=== PATIENT | female | born 1985 | race Caucasian/White ===

== ENCOUNTER 2017-05-01 07:33 | Inpatient (IN) | payer SELFPAY ==
[2017-05-01] MEDS ORDERED: cefTRIAXone\\ROCEPHIN 1 GM VIAL ONE (08:57)
[2017-05-01] MEDS ORDERED: metroNIDAZOLE 500 MG/100 ML BAG ONE (08:57)
[2017-05-01 09:34] LABS: Hemoglobin A1c 12.6 % (4.0-6.0)
--- NOTE | 2017-05-01 09:34 | HP ---
DATE OF ADMISSION: 05/01/2017 PRIMARY CARE PHYSICIAN: None. CHIEF COMPLAINT: Abdominal discomfort of 2 weeks' duration. HISTORY OF PRESENT ILLNESS: Patient is a 31-year-old female with diabetes mellitus type 2, presente d to [facility] with right upper quadrant abdominal discomfort that has been ongoing for the last 2 weeks. Her pain was initially intermittent; however, lately it has been more or less constant. She also had nausea and vomited twice this week. She also feels bloated. She felt somewhat constipated for which she took laxatives. However, she was getting bowel movement s on a daily basis. The pain was more or less moderate in intensity, worse on movement. She denies any aggravating factor. She denies any fever; however, had intermittent chills. She denies any si ck contacts or travel. She denies eating outside. No other family members with similar illness. Initial vital signs at [place] showed temperature 98, respirations 18, pulse of 90, blood press ure of 144/84 with O2 saturation 97% on room air. Her WBC count was 12.4 with blood glucose of 365. Bicarbonate was 21 with glucosuria and ketones. She had a CT scan of the abdomen and pelvis that was consistent with inflammatory stranding in the right paracolic gutter adjacent to the ascending c olon with mild stranding in the anterior aspect of the pelvis anterior to the right adnexal structur e. There was diffuse fatty infiltration of the liver without any CT evidence of appendicitis. Righ t upper quadrant ultrasound showed sludge with positive sonographic Sutherland's sign. Her lipase was n ormal. PAST MEDICAL HISTORY: Diabetes mellitus type 2 and anxiety. PAST SURGICAL HISTORY: section. ALLERGIES: No known drug allergies. CURRENT HOME MEDICATIONS: Patient does not take any medications due to financial reasons. SOCIAL HISTORY: Patient currently lives at home with her family. No smoking, alcohol or drug use. FAMILY HISTORY: Positive for diabetes mellitus type 2. REVIEW OF SYSTEMS: The following complete review of systems was negative, unless otherwise mentione d in the HPI or below: Constitutional: Weight loss or gain, ability to conduct usual activities. Skin: Rash, itching. Eyes: Double vision, pain. ENT/Mouth: Nose bleeding, neck stiffness, pain, tenderness. Cardiovascular: Palpitations, dyspnea on exertion, orthopnea. Respiratory: Shortness of breath, wheezing, cough, hemoptysis, fever or night sweats. Gastrointestinal: Poor appetite, abdominal pain, heartburn, nausea, vomiting, constipation, or diar noel. Genitourinary: Urgency, frequency, dysuria, nocturia. Musculoskeletal: Pain, swelling. Neurologic/Psychiatric: Anxiety, depression. Allergy/Immunologic: Skin rash, bleeding tendency. PHYSICAL EXAMINATION: VITAL SIGNS: As discussed above. GENERAL: A 31-year-old female in mild distress due to abdominal discomfort. HEENT: Head is atraumatic, normocephalic. Sclerae are anicteric. Dry mucous membranes. No oral l esion. NECK: Supple, no JVD appreciated. No carotid bruit. LUNGS: Clear to auscultation bilaterally. HEART: S1, S2 present, regular rate and rhythm. No murmur, rubs or gallops are appreciated. ABDOMEN: Soft. There is right upper quadrant tenderness with voluntary guarding. No costovertebra l angle tenderness. Bowel sounds were present. EXTREMITIES: No edema or calf tenderness. NEUROLOGIC: Grossly nonfocal, moves all four extremities. PSYCHIATRY: Alert, awake, oriented x3. SKIN: Warm and dry. LYMPH NODES: No palpable lymph nodes in the neck. PERIPHERAL VASCULAR: Radial pulses palpable bilaterally. MUSCULOSKELETAL: No joint swelling or tenderness. LABORATORY DATA AND IMAGIN. As discussed above. LFTs in normal range. Lipase was normal. test was normal. Gluc ose was 365. 2. Chest x-ray by my review was negative for infiltrate or edema. 3. CT scan of the abdomen and right upper quadrant ultrasound as discussed above. IMPRESSION: 1. Sepsis. 2. Suspected colitis. Rule out gallbladder etiology. 3. Diabetes mellitus type 2. 4. Dehydration. 5. Metabolic acidosis, rule out diabetic ketoacidosis/lactic acidosis. 6. Mild hyponatremia, probably secondary to hyperglycemia. 7. Medication noncompliance. PLAN: 1. The patient will be monitored on the medical floor. Gastroenterology will be consulted. We prema l keep her n.p.o. HIDA scan will be done today. We will repeat labs today. Check ketones and lact ic acid. IV ceftriaxone and Flagyl. A.m. labs. DVT prophylaxis with SCDs. Patient was encouraged to ambulate in the hallway. 2. The patient will require at least 2-3 days for stabilization.
[2017-05-01 09:43] LABS: ALT (SGPT) 9 U/L (8-55); AST (SGOT) 11 U/L (5-34); Alkaline Phosphatase 84 U/L (40-150); Anion Gap 15 mmol/L (10-20); BUN (Urea Nitrogen) 6 mg/dL (7.0-18.7); Bilirubin, Total 0.2 mg/dL (0.2-1.2); Calc. Creatinine Clearance 0 mL/min (70-130); Carbon Dioxide 17 mmol/L (22-29); Chloride 104 mmol/L (98-107); Estimated GFR-MDRD Greater than 90; Globulin 3.3 g/dL (2.4-3.5); Magnesium 1.6 mg/dL (1.6-2.6); Phosphorus 2.2 mg/dL (2.3-4.7); Protein, Total 6.5 g/dL (6.0-8.3)
[2017-05-01] MEDS ORDERED: Loratadine 10 MG TAB PO PRN (11:25)
[2017-05-01] MEDS ORDERED: Dextrose 50% Abboject 50 ML SYRINGE SLOW IVP PRN (11:25)
[2017-05-01] MEDS ORDERED: Ondansetron ODT 4 MG TAB PO PRN (11:25)
[2017-05-01] MEDS ORDERED: Dextrose 5% in Water 1,000 ML IV PRN (11:25)
[2017-05-01] MEDS ORDERED: Acetaminophen 325 MG TAB PO PRN (11:25)
[2017-05-01] MEDS ORDERED: NPH, Human Insulin Isophane 300 UNIT/3 ML VIAL SC SCH (11:25)
[2017-05-01] MEDS ORDERED: Ondansetron HCl/PF 4 MG/2 ML Vial IVP PRN (11:25)
[2017-05-01] MEDS ORDERED: Senokot 8.6 MG TAB PO PRN (11:25)
[2017-05-01] MEDS ORDERED: Calcium Carbonate 500 MG ChewTAB PO PRN (11:25)
[2017-05-01] MEDS ORDERED: Eucerin (Mineral Oil/Petrolatum,White) 30 gm Jar TOP PRN (11:25)
[2017-05-01] MEDS ORDERED: cefTRIAXone\\ROCEPHIN 1 GM in Sodium Chloride 0.9% 100 ML IVPB SCH (12:00)
[2017-05-01] MEDS: K-Phos Neutral 250 MG TAB PO SCH ×3 (12:12→20:19)
[2017-05-01] MEDS: Insulin Regular 300 UNITS/3 ML VIAL SC PRN ×2 (12:34→20:46)
--- NOTE | 2017-05-01 12:52 | CON ---
DATE OF CONSULTATION: 05/01/2017 REQUESTING PHYSICIAN: Deandre Edwards M.D. HISTORY OF PRESENT ILLNESS: A 31-year-old morbidly obese woman with history of type 2 diab etes mellitus. The patient presented to the emergency department today complaining of 2-week histor y of epigastric to right upper quadrant abdominal pain. Pain is described as sharp and associated w ith frequent nausea and abdominal bloating. The patient thought she was constipated and has taken s ome laxatives with no relief. The patient reports frequent flatulence. Pain had intensified over l ast 2 days. As a result, the patient presented to emergency department. She denies any radiation w ith respect to the pain. She denies any fevers or chills. PAST MEDICAL HISTORY: Significant for obesity and diabetes mellitus for which she was previously on insulin, but has not been compliant. PAST SURGICAL HISTORY: Pertinent for 7 years ago. SOCIAL HISTORY: The patient is and is a . 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 Otherwise, lives at home with her and a 7-year-old daughter. She denies any c igarette smoking, ethanol or illicit drug abuse. FAMILY HISTORY: Notable for mother who recently from complications of diabetes mellitus and he art disease. Her father from tobacco related lung carcinoma. Her grandmother also had diabete s mellitus. CURRENT MEDICATIONS: None. ALLERGIES: The patient denies any known drug allergies. REVIEW OF SYSTEMS: Ten-point review of system essentially unremarkable except for as stated in the past medical history and chief complaint. PHYSICAL EXAMINATION: GENERAL: This reveals a 31-year-old morbidly obese woman who is otherwise coherent, interactive and appears stated age. The patient is alert and oriented x3, appears to be in no significant acute di stress at the time of my evaluation. VITAL SIGNS: Includes blood pressure 161/84, pulse is 93, respiratory rate is 18, temperature is 97 degrees Fahrenheit, and oxygen saturation is 95% on room air. HEENT: Reveals normocephalic and atraumatic. Pupils are equal, round, and reactive to light and ac commodation. HEART: Reveals regular rate and rhythm, no murmurs or gallops auscultated. LUNGS: Clear to close auscultation bilaterally. Breathing is regular and unlabored. ABDOMEN: Soft and obese. She has right upper quadrant tenderness to palpation. She has a positive Sutherland sign. Liver and spleen are otherwise nonpalpable below costal margins. NEUROLOGIC: Reveals no focal deficits present. PERTINENT LABORATORY FINDINGS: Today includes CBC from [place] with 12,400 white blood cells, hemoglobin 12.8, hematocrit is 37.4, platelet count is 501,000. Metabolic profile includes sodium 132, potassium is 3.6, chloride is 104, bicarbonate is 17, BUN 6, creatinine 0.59, and glucose is 271. Hemoglobin A1c is 12.6. Lactic acid is 0.7. Phosphorus 2.2, magnesium 1.6, AST and ALT are both normal at 11 and 9 respectively. Alkaline phosphatase is also n ormal at 84. I have personally reviewed the abdominal ultrasound which reveals gallbladder which is devoid of gal lstones. There is biliary sludge present. Common bile duct size is normal in diameter. There is n o significant pericholecystic fluid or gallbladder wall thickening present. IMPRESSION: Likely acalculous cholecystitis, given this patient's clinical presentation and history . RECOMMENDATIONS: Recommendation is laparoscopic cholecystectomy. I have advised the patient of the above findings and recommendations. I have advised the patient also of the risks and benefits of t he proposed surgery. Risks include, but not limited to bleeding, infection, injury to bile duct or surrounding structures. This information is given to the patient in the presence of her nurse. I have answered all of her questions. The patient has indicated understanding of information given. She has also granted consent for this surgical intervention. Thank you again, Dr. Edwards, for allowing me the opportunity to participate in the care of this pat ient.
[2017-05-01] MEDS ORDERED: Bupivacaine HCl 0.5%/Epinephrine 1:200,000/PF 30 ml Vial ONE (14:26)
[2017-05-01] MEDS ORDERED: Lidocaine 1% PF 5 ML VIAL ONE (14:29)
[2017-05-01] MEDS ORDERED: Ondansetron HCl/PF 4 MG/2 ML Vial ONE (14:29)
[2017-05-01] MEDS ORDERED: Propofol 200 MG/20 ML VIAL ONE (14:29)
[2017-05-01] MEDS ORDERED: Glycopyrrolate 0.2 MG/ML 5 ML SYRINGE ONE (14:29)
[2017-05-01] MEDS ORDERED: Ketorolac Tromethamine 30 MG/ML VIAL ONE (14:29)
[2017-05-01] MEDS ORDERED: Fentanyl 100 MCG/2 ML VIAL ONE ×2 (14:30→16:55)
[2017-05-01] MEDS: metroNIDAZOLE 500 MG in Premix Bag 1 BAG IVPB SCH ×2 (15:25→22:10)
[2017-05-01] MEDS: Sodium Chloride 0.9% 1,000 ML IV SCH ×2 (15:25→18:26)
[2017-05-01] MEDS ORDERED: traMADol HCl 50 MG TAB PO PRN ×2 (16:16)
[2017-05-01] MEDS ORDERED: Promethazine HCl 25 MG/ML VIAL ONE (16:32)
--- NOTE | 2017-05-01 17:27 | OP ---
DATE OF OPERATION: 05/01/2017 PREOPERATIVE DIAGNOSIS: Acute cholecystitis. POSTOPERATIVE DIAGNOSES: 1. Acute acalculous cholecystitis. 2. Likely ruptured ovarian cyst with moderate pelvic hemoperitoneum. PROCEDURES PERFORMED: Laparoscopic cholecystectomy. SURGEON: Sahil Gomez D.O. ANESTHESIA: General endotracheal. ESTIMATED BLOOD LOSS: 20 mL FLUIDS GIVEN: 800 mL crystalloids. SPONGE AND INSTRUMENT COUNT: Certified as correct x2. COMPLICATIONS: None apparent at time of operation. INDICATIONS FOR PROCEDURE: A 31-year-old obese woman presented with a 2-week history of ep igastric to right upper quadrant abdominal pain associated with intractable nausea and emesis. Clin ical and radiographic examination was consistent with acute acalculous cholecystitis for which patie nt was brought to the operating room for cholecystectomy. The patient also has a history of poorly controlled diabetes mellitus, which confounded the working diagnosis. Findings are consistent with gallbladder in the usual anatomic location partially encased by omental adhesions. We also evaluate d and noted a normal appendix in the usual anatomic location. There was a pelvic fluid extended to the right lateral gutter, which was hemorrhagic in nature associated with large adnexa. Ruptured ov aviva cyst is suspected. DESCRIPTION OF PROCEDURE: Informed consent obtained from the patient, who was brought to the operat ing room and placed in supine position. Following general anesthesia, abdomen was sterilely prepped and draped in the usual fashion. The skin below the umbilicus was infiltrated with 0.25% Marcaine with epinephrine. A small curvilinear infraumbilical incision was made using an 11 scalpel. Umbili reinaldo stalk was grasped with Robert and elevated. Veress needle was inserted through the incision and placed in the peritoneal cavity through which the abdomen was insufflated with 3 liters of CO2 gas. Intra-abdominal pressure was noted at 2 mmHg. Following abdominal insufflation, Veress needle was removed and a 5 mm trocar inserted through the incision and placed in the peritoneal cavity. This was done under laparoscopy. Laparoscopy confirmed proper placement of the port, no injuries to unde rlying structures. Additional laparoscopy reveals the gallbladder in the usual anatomic location pa rtially encased by omental adhesions. Under direct laparoscopy, a 12 mm epigastric and two 5 mm rig ht lateral subcostal ports were placed after the overlying skin was infiltrated with 0.25% Marcaine with epinephrine and appropriate incisions made. We placed the patient in the reverse Trendelenburg position, rotating the patient to her left and immediately we noted some hemorrhagic fluid coming f rom the right lateral gutter. The patient was repositioned in the neutral position. We then used a Prestige grasper to bluntly take down omental adhesions to reveal the right colon. The patient was placed in a Trendelenburg position, rotated to her left. Laparoscopy at that time revealed a cheryl l appendix in the usual anatomic location. We noted an enlarged right ovary with a fair amount of h emorrhagic fluid surrounding this, extending to the right lateral gutter. I suspected ruptured ovar sue cyst. I did not find any other pathology. Finding this, the patient was returned again to the reverse Alonso ndelenburg position, rotated to her left. We have preceded that to address the gallbladder. I intr oduced a Prestige grasper through the right lateral subcostal port, grasping the fundus of the gallb ladder which was elevated cephalad. Omental adhesions were then taken down from the remainder of th e gallbladder using a [place] dissector with cautery. A second Prestige grasper was introduced thr ough the right medial subcostal port grasping the Burgos's pouch, which was retracted laterally. C ystic duct was dissected free from surrounding structures and divided between clips. Two clips were applied proximally and one clip at the junction of the cystic duct and gallbladder. The cystic art shilpa was dissected free from surrounding structures and divided between clips in a similar fashion. Gallbladder itself was removed from the liver bed using cautery with good hemostasis. Finding no ot her pathology, laparoscopy was terminated. The gallbladder was delivered out of the abdominal cavit y using an EndoCatch. Operative site was inspected. Moderate amount of oozing from the gallbladder fossa was readily controlled using the 1 x 2 inch piece of fibula. Fascia of the epigastric port s ite was closed using 0 Vicryl suture and Endo closure device under laparoscopy. The abdomen was mason ufflated. All ports and instruments were removed and accounted for. Skin incision was closed using 4-0 Monocryl suture in subcuticular fashion. Dermabond was then applied to all incisions. The pat ient tolerated the operation without any apparent complications and was returned to recovery room in satisfactory condition.
[2017-05-01] MEDS: Ketorolac Tromethamine 30 MG/ML VIAL IVP SCH (18:26)
[2017-05-01] MEDS: Acetaminophen 325 MG TAB PO SCH ×2 (18:26→22:07)
[2017-05-01] MEDS: Docusate 100 MG CAP PO SCH (20:19)
[2017-05-01] MEDS: Famotidine/PF 20 mg/2ml Vial SLOW IVP SCH (20:45)
[2017-05-01] MEDS: NPH, Human Insulin Isophane 300 UNIT/3 ML VIAL SC SCH (20:46)
[2017-05-01] MEDS ORDERED: Enoxaparin Sodium 40 MG/0.4 ML SYRINGE SC SCH (21:00)
[2017-05-02] MEDS: Sodium Chloride 0.9% 1,000 ML IV SCH ×2 (00:48→06:31)
[2017-05-02] MEDS: Ketorolac Tromethamine 30 MG/ML VIAL IVP SCH ×2 (00:48→06:23)
[2017-05-02] MEDS: Acetaminophen 325 MG TAB PO SCH (03:17)
[2017-05-02 05:16] LABS: #Eosinphils 0.1 thou/uL (0.0-0.7); #Lymphocytes 2.9 thou/uL (1.20-3.40); #Monocytes 0.6 thou/uL (0.11-0.59); %Basophils 0.2 % (0.0-1.0); %Eosinophils 1.2 % (0.0-10.0); %Monocytes 5.8 % (0.0-10.0); Hematocrit 35.1 % (36.0-47.0); Mean Platelet Volume 6.8 fL (7.4-10.4); Red Blood Cell (RBC) Count 3.98 mill/uL (4.20-5.40); White Blood Cell (WBC) Count 10.7 thou/uL (4.8-10.8)
[2017-05-02 05:41] LABS: ALT (SGPT) 56 U/L (8-55); AST (SGOT) 71 U/L (5-34); Alkaline Phosphatase 83 U/L (40-150); Bilirubin, Direct 0.1 mg/dL (0.1-0.3); Bilirubin, Total 0.2 mg/dL (0.2-1.2)
[2017-05-02 05:52] LABS: ALT (SGPT) 54 U/L (8-55); AST (SGOT) 70 U/L (5-34); Alkaline Phosphatase 84 U/L (40-150); Anion Gap 12 mmol/L (10-20); BUN (Urea Nitrogen) 6 mg/dL (7.0-18.7); Bilirubin, Total Less than 0.2 mg/dL (0.2-1.2); Calc. Creatinine Clearance 243 mL/min (70-130); Calcium 8.1 mg/dL (7.8-10.44); Carbon Dioxide 21 mmol/L (22-29); Chloride 106 mmol/L (98-107); Estimated GFR-MDRD Greater than 90; Phosphorus 2.2 mg/dL (2.3-4.7); Protein, Total 5.9 g/dL (6.0-8.3)
[2017-05-02] MEDS: metroNIDAZOLE 500 MG in Premix Bag 1 BAG IVPB SCH (06:24)
[2017-05-02] MEDS: Famotidine/PF 20 mg/2ml Vial SLOW IVP SCH (08:49)
[2017-05-02] MEDS: K-Phos Neutral 250 MG TAB PO SCH ×3 (10:13→17:13)
[2017-05-02] MEDS: Acetaminophen 500 MG TAB PO SCH ×2 (10:13→17:13)
[2017-05-02] MEDS: NPH, Human Insulin Isophane 300 UNIT/3 ML VIAL SC SCH (10:13)
[2017-05-02] MEDS: Docusate 100 MG CAP PO SCH (10:13)
--- NOTE | 2017-05-02 10:45 | PRG ---
DATE OF SERVICE: 05/02/2017 SUBJECTIVE: Ms. Martinez is postoperative day #1, status post laparoscopic cholecystectomy. She r eports 2/10 abdominal pain which is incisional in nature. She denies any nausea or vomiting. OBJECTIVE: VITAL SIGNS: Today includes blood pressure 143/87, pulse is 92, respiration is 16, temperature is 9 8.4 degrees Fahrenheit, and oxygen saturation is 95% on room air. HEENT: Examination reveals normocephalic and atraumatic. Pupils are equal, round, reactive to ligh t and accommodation. HEART: Reveals regular rate and rhythm, no murmurs or gallops are auscultated. CHEST: Clear to auscultation bilaterally. Breathing is regular and unlabored. ABDOMEN: Soft and obese. Incisions remain intact, clean, and dry. She has incisional tenderness t o palpation with no gross rebound tenderness present. LABORATORY DATA: Pertinent laboratory findings today includes CBC with 10,700 white blood cells, he moglobin 11.8, hematocrit is 35.1, and platelet count 479,000. Metabolic profile: Sodium 135, pota ssium is 3.5, chloride is 106, bicarbonate 21, BUN 6, creatinine 0.54, glucose 172, phosphorus is 2. 2, AST and ALT are noted at 71 and 56 respectively. Alkaline phosphatase is normal at 83, total gabriele irubin is normal at 0.2. IMPRESSION: Postoperative day #1, status post laparoscopic cholecystectomy, hemodynamically stable. PLAN: 1. Diet and activity to be advanced as tolerated. 2. The patient may be discharged at the discretion of the primary service. She follows up with me in the Surgery Clinic in 2 weeks. Above findings and plan discussed with the patient who indicates understanding of information given. I answered all her questions.
[2017-05-02] MEDS: Insulin Regular 300 UNITS/3 ML VIAL SC PRN ×2 (14:27→17:14)
[2017-05-02 14:39] VITALS: BMI 44.5
--- NOTE | 2017-05-02 15:59 | DIS ---
DATE OF DISCHARGE: 05/02/2017 DISCHARGE DISPOSITION: Home. FOLLOWUP: 1. Follow up with primary care physician at [facility] [place] in 1 week. Please n ote the patient has not seen a primary care over the past year. 2. Followup with Dr. Patricia Baxter in 2 weeks. 3. Follow up with [facility] as outpatient for ruptured ovarian cyst. ALLERGIES: No known drug allergies. DISCHARGE MEDICATIONS: 1. Tylenol as needed. 2. Ibuprofen as needed. 3. Tramadol as needed. 4. NPH 10 units daily. 5. Metformin 500 mg twice a day to be started after 5 days. 6. Repeat base met in 1 week is recommended. Primary care physician advised to follow. BRIEF HOSPITAL COURSE: Patient is a 31-year-old female with diabetes mellitus type 2; uncontrolled, presented to the hospital with abdominal discomfort of 2 weeks' duration. Please refer to the hist ory and physical for further details. The patient was admitted to the hospital with a diagnosis of sepsis with questionable cholecystitis/ colitis. The patient was seen by General Surgery, Dr. Gomez. Her initial CT scan of the abdomen an d pelvis was consistent with inflammatory stranding in the right paracolic gutter adjacent to the as cending colon with 2.2 cm low density structure with enhancing wall seen in the right adnexa, probab ly related to right ovary and cyst. She was started on broad spectrum antibiotics along with IV flu ids. She underwent laparoscopic cholecystectomy on the same day. There was moderate pelvic hemoper itoneum, probably secondary to ruptured ovarian cyst. Her abdominal pain has resolved. She has bee n cleared by General Surgery for discharge. The patient was found to have uncontrolled diabetes mellitus, type 2. Her hemoglobin A1c was 12.6. Please note that patient does not take any insulin. She was educated extensively on diabetes. She also saw the dietitian. Her blood sugars have been stable on 10 units of NPH. She will follow up with the primary care physician for further medication adjustment. She was advised to monitor blood sugar on the daily basis. SIGNIFICANT LABORATORY DATA: 1. Ketones of 1.41 on admission. Today, it was 1.1. 2. LFTs in normal range. 3. Blood sugar on admission 365. 4. Hemoglobin A1c 12.6. 5. WBC on admission 12.4 6. Urinalysis was negative for WBC or bacteria. Urine culture showed 10,000-25,000 group B strep. FINAL DIAGNOSES: 1. Sepsis. 2. Acute acalculous cholecystitis. 3. Moderate pelvic hemoperitoneum, suspected secondary to ruptured ovarian cyst. An outpatient [facility] ecology followup is recommended. 4. Uncontrolled diabetes mellitus type 2 with possible mild diabetic ketoacidosis versus starvation ketosis. 5. Hyponatremia. 6. Hypophosphatemia. 7. Medication noncompliance. 8. Anxiety without any suicidal ideation. 9. Dehydration. Plan of care was discussed with the patient. She stated understanding. The patient is ambulating i n the hallway.
[2017-05-02 16:14] VITALS: BP 146/71; TEMP 98.2
[2017-05-02] MEDS ORDERED: NPH, Human Insulin Isophane 300 UNIT/3 ML VIAL SC SCH (17:30)
[2017-05-03] MEDS ORDERED: NPH, Human Insulin Isophane 300 UNIT/3 ML VIAL SC SCH (09:00)
== END 2017-05-02 18:12 | disposition home or self-care (01) | DRG 854 ==
LOC: ERS 07:33 → 3SE 09:16
PROVIDERS: ADMIT Internal Medicine; ATTEND Internal Medicine
PROC: 0FT44ZZ Resection of Gallbladder, Percutaneous Endoscopic Approach (ICD-10-PCS; principal; 2017-05-01)
DX: A41.9 Sepsis, unspecified organism (principal); K81.0 Acute cholecystitis; E11.65 Type 2 diabetes mellitus with hyperglycemia; E87.1 Hypo-osmolality and hyponatremia; Z68.41 Body mass index [BMI] 40.0-44.9, adult; N83.201 Unspecified ovarian cyst, right side; E83.39 Other disorders of phosphorus metabolism; Z91.14 Patient's other noncompliance with medication regimen; F41.9 Anxiety disorder, unspecified; E86.0 Dehydration; E66.01 Morbid (severe) obesity due to excess calories
CPT/HCPCS: 36415; 36416; 80053; 82010; 83036; 83605; 83735; 84100; 84703; 85025; 88304; 90471; 90732; 96365; 96368; A4216; G0009; J0670; J0696; J1650; J1815; J1885; J2001; J2405; J2550; J2704; J3010; S0028

== ENCOUNTER 2017-12-08 07:17 | Observation (INO) | payer SELFPAY ==
[2017-12-08] MEDS ORDERED: Potassium Chloride 20 MEQ TAB ONE (07:54)
[2017-12-08 08:29] LABS: BHCG - Serum Negative (NEGATIVE)
[2017-12-08 08:30] LABS: Pregs Control Background? CLEAR/WHITE (CLR/WHITE); Pregs Control Bar Appear? YES (CONTROL BAR)
[2017-12-08 08:32] LABS: Anion Gap 11 mmol/L (10-20); BUN (Urea Nitrogen) 23 mg/dL (7.0-18.7); Calc. Creatinine Clearance 0 mL/min (70-130); Calcium 8.3 mg/dL (7.8-10.44); Carbon Dioxide 23 mmol/L (22-29); Chloride 100 mmol/L (98-107); Estimated GFR-MDRD 69; Glucose 347 mg/dL (70-105); Potassium 3.4 mmol/L (3.5-5.1); Sodium 131 mmol/L (136-145)
[2017-12-08] MEDS ORDERED: cefTRIAXone\\ROCEPHIN 1 GM VIAL ONE (08:58)
[2017-12-08] MEDS ORDERED: Sodium Chloride 0.9% 100 ML ONE (08:58)
[2017-12-08] MEDS ORDERED: Dextrose 50% Abboject 50 ML SYRINGE SLOW IVP PRN (10:00)
[2017-12-08] MEDS ORDERED: HumaLOG 300 UNITS/3 ML VIAL SC PRN ×2 (10:00)
[2017-12-08] MEDS ORDERED: Ondansetron HCl/PF 4 MG/2 ML Vial IVP PRN (10:00)
[2017-12-08] MEDS ORDERED: Acetaminophen 325 MG TAB PO PRN (10:00)
[2017-12-08] MEDS ORDERED: Dextrose 5% in Water 1,000 ML IV PRN (10:00)
[2017-12-08] MEDS ORDERED: traMADol HCl 50 MG TAB PO PRN (10:00)
[2017-12-08] MEDS ORDERED: Ondansetron ODT 4 MG TAB PO PRN (10:00)
[2017-12-08] MEDS ORDERED: HYDROcodone/Acetaminophen 5/325 mg Tablet PO PRN ×2 (10:00)
[2017-12-08] MEDS ORDERED: Acetaminophen 500 MG TAB PO PRN (10:00)
[2017-12-08] MEDS ORDERED: Enoxaparin Sodium 40 MG/0.4 ML SYRINGE SC SCH (10:15)
[2017-12-08] MEDS ORDERED: Insulin NPH/Reg Insulin Hm 300 UNITS/3 ML VIAL SC SCH (10:30)
[2017-12-08 10:57] VITALS: BMI 39.2
[2017-12-08] MEDS: Sodium Chloride 0.9% 1,000 ML IV SCH ×2 (11:11→16:43)
[2017-12-08 13:51] LABS: #Lymphocytes 1.8 thou/uL (1.20-3.40); #Monocytes 0.6 thou/uL (0.11-0.59); #Neutrophils 1.8 thou/uL (1.40-6.50); %Basophils 0.8 % (0.0-1.0); %Eosinophils 0.4 % (0.0-10.0); %Lymphocytes 42.5 % (21.0-51.0); %Monocytes 13.2 % (0.0-10.0); %Neutrophils 43.1 % (42.0-75.0); Hemoglobin 14.2 g/dL (12.0-16.0); Mean Corpuscular HGB CONC 35.3 g/dL (32.0-36.0); Mean Corpuscular Hemoglobin 30.7 pg (27.0-31.0); Mean Platelet Volume 7.7 fL (7.4-10.4); Platelet Count 289 thou/uL (130-400); RBC Distribution Width 11.9 % (11.5-14.5); Red Blood Cell (RBC) Count 4.62 mill/uL (4.20-5.40); White Blood Cell (WBC) Count 4.2 thou/uL (4.8-10.8)
[2017-12-08 14:24] LABS: Anion Gap 14 mmol/L (10-20); BUN (Urea Nitrogen) 20 mg/dL (7.0-18.7); Calc. Creatinine Clearance 163 mL/min (70-130); Calcium 8.1 mg/dL (7.8-10.44); Carbon Dioxide 17 mmol/L (22-29); Chloride 105 mmol/L (98-107); Estimated GFR-MDRD Greater than 90; Glucose 308 mg/dL (70-105); Potassium 3.7 mmol/L (3.5-5.1); Sodium 132 mmol/L (136-145)
[2017-12-08 16:11] VITALS: BP 152/97; TEMP 98
[2017-12-08] MEDS ORDERED: Famotidine 20 MG TAB PO SCH (21:00)
[2017-12-09] MEDS ORDERED: Enoxaparin Sodium 40 MG/0.4 ML SYRINGE SC SCH (09:00)
--- NOTE | 2017-12-10 00:40 | HP ---
PRIMARY CARE PHYSICIAN: Ms. Chapis Boyce, Nurse Practitioner, I believe [place]. DATE OF ADMISSION: 12/10/2017 TIME OF SERVICE: 1345. CHIEF COMPLAINT: Hyperglycemia, nausea, and vomiting. HISTORY OF PRESENT ILLNESS: Ms. Martinez is a 32-year-old Latin-[place] female with history of ins ulin-dependent diabetes mellitus type 2 and medical nonadherence. Patient was in [facility]. She takes 70/30 insulin when she feels like her sugars are getting high, but jena agosto actually checks them. About 3 days ago, the 24-hour gastroenteritis-type illness was noted by the member of the household, but she did not resolve symptoms after 24 hours. The last 72 hours, she con tinued to have nausea and vomiting respective with diarrhea. She has not really been able to eat or drink. She has not taken any of her insulin. When she continued to have nausea and vomiting, she decided to present to an outside emergency depart ment for evaluation. On arrival there, she was found to have blood sugar of 576, creatinine of 1.30 with an unknown baseli ne. Sodium was 129, but when corrected for her high sugars actually normal at 140, but her bicarbona te was low at 16 and she had an anion gap of about 25. She was given some insulin and 1 liter of IV fluids and was subsequently transferred here for DKA. On arrival here, repeat labs are actually fairly normal with an anion gap closed at 11. Her sodium w as improved at 131, trouble with corrected pressure was actually 137, and a bicarbonate was up to 23. Her creatinine dropped from 1.32 to 0.75. White count was elevated, we were called for admission. Patient was accepted in transfer to the floor was seen and examined on arrival. She had no further n ausea and vomiting that was actually able to eat lunch and keep it down and was asking if she can go home. No chest pain or difficulty breathing, she is not having any nausea at all now. No fevers or chills and no GI bleeding symptoms. Blood sugars on the floor have been now improving down to the low 200 since arrival. PAST MEDICAL HISTORY: 1. Insulin-dependent diabetes mellitus, type 2. 2. Medical noncompliance. She does not take her insulin when she "feels like she needs it." PAST SURGICAL HISTORY: None. HOME MEDICATIONS: Insulin 75/25, 10 units subcutaneous b.i.d. ALLERGIES: NKDA. FAMILY HISTORY: Negative for clotting or bleeding disorder. No immune dysfunction, no diabetes. Beatriz mariano does have high blood pressure and obesity. No premature coronary artery disease. SOCIAL HISTORY: Negative for habits x3. She is and has children at home. She has not had a [place] recent travel are reported. REVIEW OF SYSTEMS: All systems were reviewed and all systems are negative except as stated as per HP I. PHYSICAL EXAMINATION: VITAL SIGNS: Temperature 98.3, pulse initially 101 now down 75, blood pressure 130/90, respiratory r ate 20, satting 97% on room air. GENERAL: She is awake, alert, and oriented x3. She is a well-developed, well-nourished, obese [place] -[place] female is in no acute distress. HEENT: Normocephalic, atraumatic. Pupils equal, round, react to light bilaterally. Mucous membrane s are moist. She had no visible lesions or thrush. NECK: Supple. No lymphadenopathy, no JVD, no thyromegaly. Carotid upstrokes are normal. There are no bruits. LUNGS: Clear. She has good air movement bilaterally. No wheezes, no rales, or rhonchi. CARDIOVASCULAR: Normal S1, S2. She has no murmurs. She has a PMI with normal size and nondisplaced . She had no murmurs. ABDOMEN: Obese, is nontender, nondistended. I cannot palpate internal organs. She has no rebound, rigidity, or guarding. She has hyperactive bowel sounds present in all 4 quadrants. EXTREMITIES: No cyanosis or clubbing. She had trace pedal edema, just above the ankles. She had a 2+ dorsalis pedis, and posterior tibial pulses bilaterally. SKIN: Warm, moist, and well perfused. Capillary refill is about 2 seconds. Her skin is otherwise c lear lesions. MUSCULOSKELETAL: Normal. She has no inflammation. There were no palpable effusions. She has good range of motion actually ambulating in the hallway when I arrived. NEUROLOGIC: Cranial nerves II-XII grossly intact. She has no focal deficits. Normal speech pattern with 5/5 strength in both upper and lower extremities. PSYCHIATRIC: She has normal gait and no coordination issues. LABORATORY DATA: Labs here show sodium 131, potassium 3.4, chloride 100, bicarbonate 23, BUN 23, cre atinine 0.75, glucose of 347 with calcium 8.3, and anion gap calculated 11. Her liver function compl etely within normal limits. CBC showed white count of 6.6, hemoglobin 15.0, hematocrit of 45.3, and platelet count is 314,000. S he has 70% granulocytes, 4% bands, and 11% lymphocytes. Labs at outside facility have been reviewed. Chest x-ray showed no acute cardiopulmonary disease. ASSESSMENT AND PLAN: 1. Acute infectious gastroenteritis: Likely viral. She has no symptoms at all and able to keep it down. She has no nausea and certainly no bleeding. Her H&H is normal. 2. Diabetes mellitus type 2, insulin-dependent, uncontrolled. I have not been able to get an A1c on her at this point, but in light of her markedly improved clinical condition, we will let her go home and follow up with her nurse practitioner in a couple of days. 3. Possible early diabetic ketoacidosis: Patient did have a beta-hydroxybutyrate of 0.57, but also had not really eaten much for about 3 days. Sugars were elevated. She did have metabolic acidosis w ith an anion gap that was elevated and bicarbonate down was 16. Initially, she improved with just 1 liter of fluid and 10 units of IV insulin in the outside emergency department. This would be very mo st rapid recovery from diabetic ketoacidosis that I have ever witnessed. I suspect, she is likely mo re volume contracted with volume expansion and has normalized her electrolytes. 4. Medical nonadherence. I did talk to her about the importance of adhering to her diabetic regimen not just for day-to-day help, for longevity and long-term health concerns. Recommend, she follow up with Chapis Boyce NP as soon as possible.
== END 2017-12-08 17:02 | disposition home or self-care (01) ==
LOC: ERS 07:17 → T4-B 09:45 → INTOOBSV 09:45
PROVIDERS: ADMIT Internal Medicine Infectious Disease; ATTEND Internal Medicine Infectious Disease
DX: E11.65 Type 2 diabetes mellitus with hyperglycemia (principal); A09 Infectious gastroenteritis and colitis, unspecified; Z79.4 Long term (current) use of insulin; Z91.14 Patient's other noncompliance with medication regimen
CPT/HCPCS: 36415; 36416; 82010; 83735; 84703; 96361; 96365; 96367; 96372; G0378; J0696; J1650; J7050

== ENCOUNTER 2018-05-07 08:59 | Emergency (ER) | payer OTHER ==
[2018-05-07 09:43] LABS: Bilirubin Negative (Negative); Blood, Urine Large (Negative); Clarity CLEAR (Clear); Glucose, Urine (Dipstick) >=1000 mg/dL (Negative); Leukocyte Negative (Negative); Nitrite Negative (Negative); Protein, Urine (Dipstick) 30 mg/dL (Neg-Trace); Specific Gravity, Urine 1.035 (1.002-1.036); Urobilinogen 0.2 mg/dL (0.2-1.0)
[2018-05-07 09:44] LABS: #Basophils 0.1 thou/uL (0.0-0.2); #Eosinphils 0.2 thou/uL (0.0-0.7); #Lymphocytes 3.2 thou/uL (1.20-3.40); #Monocytes 0.4 thou/uL (0.11-0.59); #Neutrophils 6.4 thou/uL (1.40-6.50); %Basophils 0.6 % (0.0-1.0); %Eosinophils 1.6 % (0.0-10.0); %Lymphocytes 31.5 % (21.0-51.0); %Monocytes 4.1 % (0.0-10.0); %Neutrophils 62.2 % (42.0-75.0); Hemoglobin 14.3 g/dL (12.0-16.0); Mean Corpuscular HGB CONC 34.1 g/dL (32.0-36.0); Mean Corpuscular Hemoglobin 29.5 pg (27.0-31.0); Mean Corpuscular Volume 86.5 fL (78.0-98.0); Platelet Count 386 thou/uL (130-400); RBC Distribution Width 12.1 % (11.5-14.5); Red Blood Cell (RBC) Count 4.83 mill/uL (4.20-5.40); White Blood Cell (WBC) Count 10.2 thou/uL (4.8-10.8)
[2018-05-07 09:45] LABS: Bacteria/HPF None Seen HPF (None Seen); Hyaline Casts/LPF 0-3 HYALINE CAST LPF (0-3 Hyaline); Pathc Cast-AUWi Flag 0.58 (0-2.49); Pregnancy Test - Urine (BHCG) POSITIVE (Negative); Pregu Control Background? CLEAR/WHITE (CLR/WHITE); Pregu Control Bar Appear? YES (CONTROL BAR); Specific Gravity 1.035 (1.002-1.036); Squamous Epithelial 0-3 HPF (0-3); WBC/HPF 0-3 HPF (0-3)
--- NOTE | 2018-05-07 12:34 | ULT ---
PELVIS ULTRASOUND WITH GUTIERREZ SCALE AND DOPPLER COLORFLOW IMAGING AND SPECTRAL ANALYSIS: CLINICAL HISTORY: Vaginal bleeding. Report of positive test. TECHNIQUE: Transabdominal and transvaginal pelvic ultrasound performed. FINDINGS: There is evidence of a live intrauterine gestation, which, by sonographic imaging, corresponds to a 7 -week-3-day gestation, placing the estimated date of delivery by ultrasound at 12/21/2018. Within th e gestational sac, there is a pole and a yolk sac. Cardiac activity is documented at 168 beats per minute. There is a mild volume of endometrial fluid. Nabothian cyst is incidentally noted. Th ere is nonvisualization of each ovary for comment. IMPRESSION: Live early intrauterine gestation, as discussed above. Continued imaging followup is recommended, pending ongoing clinical assessment. POS: ELIZABETH
== END 2018-05-07 11:21 | disposition home or self-care (01) ==
LOC: ERS 08:59
DX: O20.9 Hemorrhage in early pregnancy, unspecified (principal); O99.281 Endocrine, nutritional and metabolic diseases complicating pregnancy, first trimester; E11.9 Type 2 diabetes mellitus without complications; O99.341 Other mental disorders complicating pregnancy, first trimester; F41.9 Anxiety disorder, unspecified; Z79.4 Long term (current) use of insulin; I10 Essential (primary) hypertension; Z3A.09 9 weeks gestation of pregnancy
CPT/HCPCS: 36415; 76856; 81003; 81015; 81025; 84702; 85025; 86900; 86901

== ENCOUNTER 2018-05-07 20:12 | Emergency (ER) | payer OTHER ==
--- NOTE | 2018-05-07 22:40 | ULT ---
TRANSABDOMINAL AND TRANSVAGINAL PELVIC ULTRASOUND WITH GUTIERREZ SCALE, COLOR FLOW AND SPECTRAL DOPPLER IM AGIN05/07/18 HISTORY: Vaginal bleeding. FINDINGS: Comparison is made with earlier exam of same date. A gestational sac and pole noted on the previous exam are not seen on the current study. There is echogenic material in the endometrial canal. No heart tones are seen. No free fluid is seen in the cul-de-sac. Nabothian cysts are present in the cervix. IMPRESSION: Findings are suggestive of in progress. POS: ELIZABETH
== END 2018-05-07 22:52 | disposition home or self-care (01) ==
LOC: ERS 20:12
DX: O03.9 Complete or unspecified spontaneous abortion without complication (principal); I10 Essential (primary) hypertension; E11.9 Type 2 diabetes mellitus without complications; F41.9 Anxiety disorder, unspecified; Z79.4 Long term (current) use of insulin
CPT/HCPCS: 36415; 76856; 81003; 81015; 81025; 84702; 85025; 86900; 86901